=== PATIENT | male | born 1985 | race Caucasian/White ===

== ENCOUNTER 2021-05-19 14:06 | Outpatient (CLI) | payer OTHER ==
[2021-05-19 22:16] LABS: SARS-CoV-2 PCR by NAA Not Detected (NotDetected)
== END 2021-05-19 14:07 | disposition home or self-care (01) ==
LOC: LABBT 14:06
PROVIDERS: ATTEND Otolaryngology Plastic Surgery within the Head & Neck
DX: S02.2XXA Fracture of nasal bones, initial encounter for closed fracture (principal); S09.93XD Unspecified injury of face, subsequent encounter; J34.2 Deviated nasal septum; J34.3 Hypertrophy of nasal turbinates; R53.83 Other fatigue; K21.9 Gastro-esophageal reflux disease without esophagitis; G47.33 Obstructive sleep apnea (adult) (pediatric); R06.83 Snoring; J34.89 Other specified disorders of nose and nasal sinuses; Z20.822 Contact with and (suspected) exposure to COVID-19
CPT/HCPCS: U0003; U0005

== ENCOUNTER 2021-05-24 06:00 | Day surgery (SDC) | payer OTHER ==
[2021-05-19 10:46] VITALS: BMI 33.0
[2021-05-24] MEDS ORDERED: AFRIN NASAL MIST 15 ML BOT ONE ×2 (07:03→07:07)
[2021-05-24] MEDS ORDERED: Bacitracin Zinc Ointment 30 gm TUBE ONE (07:07)
[2021-05-24] MEDS ORDERED: Lidocaine 1% w/Epinephrine 1:100K 20 ML VIAL ONE (07:07)
[2021-05-24] MEDS ORDERED: Famotidine/PF 20 mg/2ml Vial ONE (07:56)
[2021-05-24] MEDS ORDERED: Meperidine HCl/PF 25 MG/ML VIAL ONE (07:56)
[2021-05-24] MEDS ORDERED: Fentanyl 100 MCG/2 ML VIAL ONE ×2 (07:56)
[2021-05-24] MEDS ORDERED: Lidocaine 4% Topical Sol 50 ML BOT ONE (08:00)
[2021-05-24] MEDS ORDERED: PROPOFOL 200 MG/20 ML VIAL ONE (08:03)
[2021-05-24] MEDS ORDERED: Ketorolac Tromethamine 30 MG/ML VIAL ONE (08:03)
[2021-05-24] MEDS ORDERED: Metoclopramide HCl 10 MG/2 ML VIAL ONE (08:03)
[2021-05-24] MEDS ORDERED: Lidocaine 1% PF 5 ML VIAL ONE (08:03)
[2021-05-24] MEDS ORDERED: Succinylcholine 200 MG/10 ml SYRINGE FS ONE (08:03)
[2021-05-24] MEDS ORDERED: Ondansetron PF 4 MG/2 ML Vial ONE (08:03)
[2021-05-24] MEDS ORDERED: Dexamethasone 20 MG/5 ML VIAL ONE (08:03)
== END 2021-05-24 10:20 | disposition home or self-care (01) ==
LOC: SDC 06:00
PROVIDERS: ATTEND Otolaryngology Plastic Surgery within the Head & Neck
PROC: 09SM0ZZ Reposition Nasal Septum, Open Approach (ICD-10-PCS; principal; 2021-05-24)
PROC: 09TL0ZZ Resection of Nasal Turbinate, Open Approach (ICD-10-PCS; principal; 2021-05-24)
DX: J34.2 Deviated nasal septum (principal); J34.3 Hypertrophy of nasal turbinates; J34.89 Other specified disorders of nose and nasal sinuses; K21.9 Gastro-esophageal reflux disease without esophagitis; J35.1 Hypertrophy of tonsils
CPT/HCPCS: J1100; J1885; J2175; J2405; J2704; J2765; J3010; S0028